=== PATIENT | female | born 1975 | race Caucasian/White ===

== ENCOUNTER 2020-04-18 10:28 | Emergency (ER) | payer BC, SELFPAY ==
[2020-04-18] VITALS (13 sets, daily range): BP systolic 117–142; BP diastolic 85–95; PULSE 79–94; RESP 12–23; TEMP 37; O2SAT 98
--- NOTE | ~2020-04-18 | XR_ITS ---
EXAMINATION: XR chest 1V portable 04/18/2020 11:14 INDICATION: Chest palpitations. Covid. PROCEDURE: AP portable chest COMPARISON: No prior studies for comparison. FINDINGS: There is lingular airspace disease which may represent atelectasis or pneumonia. The cardio mediastinal silhouette is within normal limits. There are no pleural effusions. There is no pneumot horax suspected. IMPRESSION: 1: Left basilar airspace disease, atelectasis versus pneumonia. Reviewed, dictated and finalized at location A. [facility]GER
--- NOTE | 2020-04-18 10:38 | ECG_ITS ---
Measurements Intervals [place] Rate: 90 P: 64 [place]: 129 QRS: 25 QRSD: 93 T: 43 QT: 376 QTc: 460 Interpretive Statements SINUS RHYTHM NONSPECIFIC T-WAVE ABNORMALITY- ANTEROLAT/INF LEADS BASELINE WANDER- AVF BORDERLINE ECG Electronically Signed On 04-18-2020 16:34:19 [employer] by Abner Pan D.O.
[2020-04-18 10:55] LABS: Basophils Percent Auto 0.4 % (0.2-1.2); Hematocrit 42.5 % (37.0-47.0); Hemoglobin 13.8 g/dL (12.0-15.0); Immature Granulocyte Absolute 0.01 K/mm3 (0.00-0.031); Immature Granulocyte Percent A 0.2 % (0-0.5); Lymphocytes Absolute Auto 1.06 K/mm3 (0.9-3.2); Lymphocytes Percent Auto 19.2 % (18.3-44.2); Mean Corpuscular HGB Conc 32.5 g/dl (32-36); Mean Corpuscular Hemoglobin 28.8 pg (26-34); Mean Corpuscular Volume 88.5 fl (80-100); Mean Platelet Volume 8.6 fl (7.4-10.4); Monocytes Absolute Auto 0.4 K/mm3 (0.1-0.6); Monocytes Percent Auto 7.4 % (2.6-8.5); Neutrophils Percent Auto 72.8 % (45.5-73.1); Platelet Count Result 304 k/mm3 (150-375); Red Cell Distribution Width 13.5 % (11.5-14.5); White Blood Count 5.5 K/mm3 (4.5-10.0)
[2020-04-18 11:05] LABS: INR 0.9; Prothrombin Time 12.8 Seconds (11.1-14.7)
[2020-04-18 11:06] LABS: Partial Thromboplastin Time 33.9 SECONDS (22.3-36.8)
[2020-04-18 11:07] LABS: Anion Gap 9 mmol/L (8-16); Blood Urea Nitrogen 15 mg/dL (7-17); Calcium 8.7 mg/dL (8.4-10.2); Carbon Dioxide 26 mmol/L (22-30); Chloride 104 mmol/L (98-107); Estimated CRCL calculation 80 ml/min; Estimated Glomerular Filt Rate > 60; Glucose 104 mg/dL (65-105); Potassium 3.8 mmol/L (3.4-5.0); Sodium 139 mmol/L (137-145)
--- NOTE | 2020-04-18 11:15 | PC.NURSE ---
received report from Karyn BYNUM. patient here with continued Covid symptoms. c/o feels like her heart is racing. notes reviewed. resting on stretcher. on lead die molder. denies needs. waiting for further orders from provider.
[2020-04-18 11:18] LABS: Troponin I < 0.012 ng/mL (0.000-0.034)
[2020-04-18] MEDS: SODIUM CHLORIDE 0.9% IV 1,000 ML 999 ML IV CONT (11:37)
[2020-04-18] MEDS: ONDANSETRON INJ 4 MG/2 ML VIAL IV PUSH (11:37)
[2020-04-18] MEDS: FAMOTIDINE 20 MG/2 ML VIAL IV PUSH (11:37)
--- NOTE | 2020-04-18 12:45 | ED.ARRPALP ---
HPI - Arrhythmia/Palpitations General Chief Complaint: Arrhythmia/Palpitations Stated Complaint: rapid heart rate Time Seen by Provider: 04/18/20 10:34 Source: patient Mode of arrival: ambulatory Limitations: no limitations History of Present Illness HPI narrative: Patient is a 44-year-old female who presents with nausea and vomiting patient notes that she tested positive for Covid Sunday multiple family members at home with similar symptoms last night felt like her heart was racing patient does note cough denies dyspnea patient notes that she has had some intermittent emesis as well as headache and body aches presents in no distress does not appear uncomfortable is been taking [id number] medications for symptom relief patient does not have a primary care doc Related Data Allergies Allergy/AdvReac Type Severity Reaction Status Date / Time No Known Allergies Allergy Verified 04/18/20 10:39 Review of Systems Review of Systems: All systems reviewed & are unremarkable except as noted in HPI and below PMFSH Social History Social History (Updated 04/18/20 @ 12:46 by Issac Bhandari PA-C) Tobacco type: e-cigarettes/vaping Exam Narrative: Exam Narrative: GENERAL: Well-appearing, well-nourished, and in no acute distress. HEAD: Normocephalic, atraumatic. EYES: PERRLA and EOMI. ENT: Nares clear, no rhinorrhea or epistaxis. Mucous membranes moist. CHEST: Clear to auscultation. No respiratory distress. No wheezes rales or rhonchi HEART: Regular rate and rhythm. No murmur heard. Normal peripheral pulses. EXTREMITIES: Normal range of motion. No edema. SKIN: Warm, dry, no rash. NEURO: No focal deficits. Alert and oriented x3. PSYCH: Normal mood and affect. Course Course Emergency Course: Patient evaluated in the emergency department was hydrated given medications for her symptoms will be given primary care follow-up patient is afebrile nontoxic-appearing no distress no emesis tolerating p.o. intake patient was hydrated in the emergency department as noted. ABCs and vital signs intact and stable. Vital Signs Vital signs: Vital Signs Temperature 98.6 F 04/18/20 10:34 Pulse Rate 91 04/18/20 10:34 Respiratory Rate 12 04/18/20 10:34 Blood Pressure 142/93 H 04/18/20 10:34 Pulse Oximetry 98 04/18/20 10:34 Temperature 98.6 F 04/18/20 10:34 Pulse Rate 88 04/18/20 11:15 Respiratory Rate 23 H 04/18/20 11:15 Blood Pressure 117/88 04/18/20 11:00 Pulse Oximetry 98 04/18/20 10:34 MDM - Arrhythmia/Palpitations MDM Narrative Medical decision making narrative: Patient presented with nausea and vomiting with COVID-19 diagnosis will be sent home for further management as outpatient given primary care follow-up as well as reasons to return will be given medications to treat her symptoms and has been advised to hydrate Lab Data Result diagrams: 04/18/20 10:45 04/18/20 10:45 Labs: Lab Results 04/18/20 04/18/20 04/18/20 Range/Units 10:45 10:45 10:45 WBC 5.5 (4.5-10.0) K/mm3 RBC 4.80 (4.2-5.4) M/mm3 Hgb 13.8 (12.0-15.0) g/dL Hct 42.5 (37.0-47.0) % MCV 88.5 (80-100) fl MCH 28.8 (26-34) pg MCHC 32.5 (32-36) g/dl RDW 13.5 (11.5-14.5) % Plt Count 304 (150-375) k/mm3 MPV 8.6 (7.4-10.4) fl Immature Gran % (Auto) 0.2 (0-0.5) % Neut % (Auto) 72.8 (45.5-73.1) % Lymph % (Auto) 19.2 (18.3-44.2) % Bowie % (Auto) 7.4 (2.6-8.5) % Eos % (Auto) 0.0 (0-4.4) % Baso % (Auto) 0.4 (0.2-1.2) % Lymph # (Auto) 1.06 (0.9-3.2) K/mm3 Bowie # (Auto) 0.4 (0.1-0.6) K/mm3 Eos # (Auto) 0.0 (0-0.3) K/mm3 Baso # (Auto) 0.0 (0.0-0.1) K/mm3 Abs Immat Gran (auto) 0.01 (0.00-0.031) K/mm3 Absolute Neuts (auto) 4.0 (1.3-6.7) K/mm3 Absolute Nucleated RBC 0.0 (0.0-0.012) K/mm3 Nucleated RBC % 0.0 (0.0-0.2) % PT 12.8 (11.1-14.7) Seconds INR 0.9 APTT 33.9 (22.3-36.8) SE
[2020-04-18] MEDS: KETOROLAC 30 MG/ML VIAL (*BKC) IV PUSH (12:49)
== END 2020-04-18 13:02 | disposition home or self-care (01) ==
PROVIDERS: Emergency Medicine Emergency Medical Services; Emergency Provider Emergency Medicine
DX: U07.1 COVID-19 (principal); R11.2 Nausea with vomiting, unspecified; F17.290 Nicotine dependence, other tobacco product, uncomplicated; R91.8 Other nonspecific abnormal finding of lung field; R94.31 Abnormal electrocardiogram [ECG] [EKG]
CPT/HCPCS: 36415; 71045; 80048; 84484; 85025; 85610; 85730; 93005; 96361; 96374; 96375; 99284; J1885; J2405; J7030